=== PATIENT | female | born 1945 | race Caucasian/White ===

== ENCOUNTER 2019-04-05 13:36 | Emergency (ER) | payer OTHER ==
--- NOTE | 2019-04-05 13:47 | PDOC ---
Rapid Medical Evaluation Chief Complaint: Cold Symptoms Time Seen by Provider: 04/05/19 13:44 Medical Evaluation: 04/05/19 13:45 CC: Fever and chills at home. +sore throat and diarrhea PE: VSS. AF. OP- unremarkable. Abd SNTND. Orders: nothing Patient will proceed to ED for continued evaluation. 04/05/19 13:46 Discharge Disposition - Diagnosis Sore throat - Discharge Dispostion Condition at time of disposition: Stable - Referrals - Patient Instructions - Post Discharge Activity
[2019-04-05 13:48] VITALS: BP 142/58; PULSE 79; TEMP 98.5; BMI 22.3
--- NOTE | 2019-04-05 14:02 | PDOC ---
History of Present Illness - General Chief Complaint: Cold Symptoms Stated Complaint: COUGH/FEVER Time Seen by Provider: 04/05/19 13:44 - History of Present Illness Initial Comments: 04/05/19 14:01 CHIEF COMPLAINT: cough HISTORY OF PRESENT ILLNESS: 73 yo F with no PMH presents to [facility] with cough and fever x 1 week. Patient states cough is nonproductive and she had a temp of 101 last night. She has been taking Tylenol at home for the fever but did not take any today "because I wanted you guys to check it." No recent travel or sick contacts. PAST MEDICAL HISTORY: Denies past medical history FAMILY HISTORY: Denies SOCIAL HISTORY:Denies tobacco, alcohol, illicit drug use. SURGICAL HISTORY: Denies ALLERGIES: No known drug allergies REVIEW OF SYSTEMS General/Constitutional: Intermittent fever x 1 week. Denies weakness, weight change. HEENT: Denies change in vision. Denies ear pain or discharge. Denies sore throat. Cardiovascular: Denies chest pain or shortness of breath. Respiratory: Dry cough x 1 week. Denies wheezing, or hemoptysis. Gastrointestinal: Denies nausea, vomiting, diarrhea or constipation. Denies rectal bleeding. Genitourinary: Denies dysuria, frequency, or change in urination. Musculoskeletal: Denies joint or muscle swelling or pain. Denies neck or back pain. Skin and breasts: Denies rash or easy bruising. Neurologic: Denies headache, vertigo, loss of consciousness, or loss of sensation. Psychiatric: Denies depression or anxiety. PHYSICAL EXAM General Appearance: Well-appearing, appropriately dressed. No apparent distress. HEENT: EOMI, PERRLA, normal ENT inspection, normal voice, TMs normal, pharynx normal. No conjunctival pallor. No photophobia, scleral icterus. Neck: Supple. Trachea midline. No tenderness, rigidity, carotid bruit, stridor , lymphadenopathy, or thyromegaly. Respiratory/Chest: Lungs CTAB. No shortness of breath, chest tenderness, respiratory distress, accessory muscle use. No crackles, rales, rhonchi, stridor , wheezing, dullness Cardiovascular: RRR. S1, S2. No JVD, murmur, bradycardia, tachycardia. Vascular Pulses: Dorsalis-Pedis (R): 2+, Dorsalis-Pedis (L): 2+ Gastrointestinal/Abdominal: Normal bowel sounds. Abdomen soft, non-distended. No tenderness or rebound tenderness. No organomegaly, pulsatile mass, guarding , hernia, hepatomegaly, splenomegaly. Lymphatic: No adenopathy, tenderness. Musculoskeletal/Extremities: Normal inspection. FROM of all extremities, normal capillary refill. Pelvis Stable. No CVA tenderness. No tenderness to extremities, pedal edema, swelling, erythema or deformity. Integumentary: Appropriate color, dry, warm. 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 Fully oriented, alert. Appropriate mood/affect. Motor strength 5/5. No appreciable EOM palsy, facial droop or sensory deficit. 04/05/19 14:10 Past History - Past Medical History Allergies/Adverse Reactions: Allergies Allergy/AdvReac Type Severity Reaction Status Date / Time No Known Allergies Allergy Verified 04/05/19 13:48 Home Medications: Ambulatory Orders Azithromycin [Zithromax 250mg Tablets -] 250 mg PO UTDICT #6 tab 04/05/19 Benzonatate [Tessalon Pearls -] 100 mg PO TID #21 capsule 04/05/19 COPD: No - Immunization History Immunization Up to Date: No - Psycho Social/Smoking Cessation Hx Smoking History: Never smoked Have you smoked in the past 12 months: No Information on smoking cessation initiated: No Hx Alcohol Use: No Drug/Substance Use Hx: No *Physical Exam - Vital Signs Last Vital Signs Temp Pulse Resp BP Pulse Ox 98.5 F 79 16 142/58 L 99 04/05/19 13:45 04/05/19 13:45 04/05/19 13:45 04/05/19 13:45 04/05/19 13:45 Medical Decision Making - Medical Decision Making 04/05/19 14:11 73 yo F with no PMH presents to [facility] with cough and fever x 1 week. -cxr Will treat for CAP given persistent symptoms in elderly patient. -azithromycin -leeanne ferro Advised patient to take medication as prescribed and follow up with PCP in one week. Advised patient of signs and symptoms for return to ED. Patient verbalized understanding and agrees to plan. 04/05/19 16:42 Discharge - Discharge Information Problems reviewed: Yes Clinical Impression/Diagnosis: Pneumonia Qualifiers: Pneumonia type: due to unspecified organism Laterality: left Lung location: lower lobe of lung Qualified Code(s): J18.1 - Lobar pneumonia, unspecified organism Condition: Stable Disposition: HOME - Admission No - Additional Discharge Information Prescriptions: Azithromycin [Zithromax 250mg Tablets -] 250 mg PO UTDICT #6 tab Benzonatate [Tessalon Pearls -] 100 mg PO TID #21 capsule - Follow up/Referral Referrals: Lino Fuentes MD [Staff Physician] - - Patient Discharge Instructions Patient Printed Discharge Instructions: DI for Pneumonia -- Adult Additional Instructions: Please take medications as prescribed. Follow up with your primary care doctor in one week. If you develop any chest pain, shortness of breath, persistent fever, vomiting, diarrhea, or any new or worsening symptoms, please return to the ER immediately. - Post Discharge Activity
== END 2019-04-05 14:59 | disposition home or self-care (01) ==
LOC: JERFT 13:36
DX: J18.1 Lobar pneumonia, unspecified organism (principal)
CPT/HCPCS: 71046-TC-FY; 99281-25

== ENCOUNTER 2019-07-23 09:37 | Emergency (ER) | payer OTHER ==
[2019-07-23 09:53] VITALS: BP 121/71; PULSE 78; BMI 22.2
[2019-07-23] MEDS ORDERED: ACETAMINOPHEN 325 MG TABLET (FP) PO ONE (10:32)
[2019-07-23] MEDS ORDERED: MECLIZINE HCL 25 MG TABLET (FP) PO ONE (10:32)
[2019-07-23] MEDS ORDERED: SODIUM CHLORIDE 1,000 ML IV STA (10:32)
--- NOTE | 2019-07-23 10:38 | PDOC ---
Attending Attestation - Resident Resident Name: Carl Martinez - ED Attending Attestation I have performed the following: I have examined & evaluated the patient, The case was reviewed & discussed with the resident, I agree w/resident's findings & plan, Exceptions are as noted - HPI HPI: 07/23/19 10:33 74y F history of intermittent vertigo presents with a complaint of vertigo especially when she is sitting up or turning her head. When she is at rest laying down she is asymptomatic without any dizziness at all. The patient endorsed mild nausea earlier but has since resolved. The patient denies any current fevers or chills, neck pain, neck stiffness chest pain, shortness of breath, palpitations, abdominal pain, blood per rectum, current diarrhea. Patient states that she has had intermittent vertigo since Thursday she took a meclizine on Thursday with resolution of her symptoms. Yesterday patient noticed she had some mild right eye swelling as well as a subjective fevers some watery diarrhea and feeling nauseous, symptoms had since resolved. The patient also endorses a very mild pressure-like headache that she typically feels when she is not feeling at her best. 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 - Physicial Exam PE: 07/23/19 10:53 GENERAL: The patient is awake, alert, and fully oriented, Nontoxic - in no acute distress. HEAD: Normocephalic, atraumatic. EYES: extraocular movements intact, sclera anicteric, conjunctiva clear. No vertigo ENT: Normal voice, dry mucous membranes. NECK: Normal range of motion, supple LUNGS: Breath sounds equal, clear to auscultation bilaterally. No wheezes, no rhonchi, no rales. HEART: Regular rate and rhythm, normal S1 and S2 without murmur, rub or gallop. ABDOMEN: Soft, nontender, No guarding, no rebound. No CVA tenderness EXTREMITIES: Normal range of motion, no edema. NEUROLOGICAL: No facial assymetry, Normal speech, normal rapid alternating movements, normal sensation in upper and lower extremities. PSYCH: Normal mood, normal affect. SKIN: Warm, Dry, normal turgor, - Medical Decision Making 07/23/19 10:54 Suspect vertigo, possibly resolved viral syndrome. No clinical or symptoms suggestive of central vertigo. possible influenza, Normal neurologic exam including no cerebellar findings Will obtain screening blood work to rule out anemia, metabolic derangements. Patient afebrile here. We will give the patient fluids, meclizine for symptomatic relief 07/23/19 12:20 The patient's blood work was reviewed only notable for slightly elevated BUN likely consistent with dehydration. Patient is feeling significantly improved, ambulating without any symptoms Will discharge patient with supportive care, patient has meclizine at home (she had not taken it earlier as she was at work) I discussed the physical exam findings, ancillary test results and final diagnoses with the patient. I answered all of the patient's questions. The patient was satisfied with the care received and felt comfortable with the discharge plan and treatment plan. The patient will call their primary care physician within 24 hours to arrange follow-up and will return to the Emergency Department with any new, persistent or worsening symptoms. Heart Score/ECG Review - ECG Impressions Comment:: 07/23/19 10:55 Twelve-lead EKG was performed and reviewed by me. There is normal sinus rhythm with a normal rate. Rate of [address] wave abnormality
--- NOTE | 2019-07-23 10:50 | PDOC ---
History of Present Illness - General Chief Complaint: Lightheaded Stated Complaint: VERTIGO Time Seen by Provider: 07/23/19 10:22 History Source: Patient Exam Limitations: No Limitations - History of Present Illness Initial Comments: 07/23/19 10:40 74 yo female pmh vertigo presents to the ED for 4 days of headaches, fevers, right ear pain, dizziness, nausea without vomiting. 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 Denies recent travel, CP, SOB, abdominal pain, changes in bowel or bladder habits. Pt states it feels like the room is spinning around her, was unable to continue working today due to the severity. Past History - Past Medical History Allergies/Adverse Reactions: Allergies Allergy/AdvReac Type Severity Reaction Status Date / Time No Known Allergies Allergy Verified 07/23/19 10:21 Home Medications: Ambulatory Orders NK [No Known Home Medication] 07/23/19 COPD: No Other medical history: vertigo - Immunization History Immunization Up to Date: No - Psycho Social/Smoking Cessation Hx Smoking History: Unknown if ever smoked Have you smoked in the past 12 months: No Hx Alcohol Use: No Drug/Substance Use Hx: No Review of Systems - Review of Systems Constitutional: Yes: See HPI HEENTM: Yes: See HPI Respiratory: Yes: See HPI Cardiac (ROS): Yes: See HPI ABD/GI: Yes: See HPI : Yes: See HPI Musculoskeletal: Yes: See HPI Integumentary: Yes: See HPI Neurological: Yes: See HPI *Physical Exam - Vital Signs Last Vital Signs Temp Pulse Resp BP Pulse Ox 97.8 F 78 18 121/71 99 07/23/19 09:50 07/23/19 09:50 07/23/19 09:50 07/23/19 09:50 07/23/19 09:50 - Physical Exam General Appearance: Yes: Nourished, Appropriately Dressed. No: Apparent Distress HEENT: positive: EOMI, KIANA, Normal ENT Inspection, Pharynx Normal, Hearing Grossly Normal. negative: Tonsillar Exudate, Tonsillar Erythema Neck: positive: Supple. negative: Carotid bruit Respiratory/Chest: positive: Lungs Clear, Normal Breath Sounds. negative: Respiratory Distress, Accessory Muscle Use, Crackles, Rales, Rhonchi, Stridor, Wheezing Cardiovascular: positive: Regular Rhythm, Regular Rate, S1, S2. negative: Edema , JVD, Murmur Vascular Pulses: Dorsalis-Pedis (R): 4+, Doralis-Pedis (L): 4+ Gastrointestinal/Abdominal: positive: Flat, Soft. negative: Pulsatile Mass, Protuberent, Distended, Guarding, Rebound, Tenderness Musculoskeletal: negative: CVA Tenderness Extremity: positive: Normal Capillary Refill, Normal Inspection, Normal Range of Motion Integumentary: positive: Normal Color, Dry, Warm Neurologic: positive: stripe marker II-XII NML intact, Fully Oriented, Alert, Normal Mood/ Affect, Normal Response, Motor Strength 5/5. negative: Numbness, Sensory Deficit, Confused, Disoriented ED Treatment Course - LABORATORY CBC & Chemistry Diagram: 07/23/19 10:55 07/23/19 10:55 Medical Decision Making - Medical Decision Making 07/23/19 12:23 74 yo female pmh vertigo presents to the ED for 4 days of headaches, fevers, right ear pain, dizziness, nausea without vomiting. 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 Denies recent travel, CP, SOB, abdominal pain, changes in bowel or bladder habits. Pt states it feels like the room is spinning around her, was unable to continue working today due to the severity. Vitals WNL NAD pt well appearing Given tylenol for GRAYSON, meclizine for dizziness and fluids Labs WNL BUN slightly elevated, likely dehydration Labs otherwise WNL Pt feels much better after medication, ambulates without difficulty no longer dizzy. PT safe for DC home with strict return precautions Discharge - Discharge Information Problems reviewed: Yes Clinical Impression/Diagnosis: Vertigo Condition: Improved Disposition: HOME - Admission No - Follow up/Referral Referrals: Dorothy Davidson MD [Primary Care Provider] - - Patient Discharge Instructions Patient Printed Discharge Instructions: DI for Vertigo, DI for Headache Additional Instructions: Please see your Primary doctor within the next 48 hours. Continue taking your home dosed and prescribed meclizine for dizziness along with Tylenol and Motrin over the counter for headaches and pain. Increase your fluid intake. Return to the ER for new or concerning symptoms. Thank you - Post Discharge Activity
[2019-07-23 10:53] VITALS: TEMP 98.6
[2019-07-23] MEDS ORDERED: MECLIZINE HCL 25 MG TABLET (FP) ONE ×2 (10:54→11:00)
[2019-07-23] MEDS ORDERED: ACETAMINOPHEN 325 MG TABLET (FP) ONE ×2 (10:54→11:00)
[2019-07-23 11:06] LABS: BASO % 0.9 % (0-2.0); EOS % 1.6 % (0-4.5); HEMATOCRIT 38.1 % (32.4-45.2); HEMOGLOBIN 12.5 GM/dL (10.7-15.3); LYMPH % 21.2 % (8-40); MCH 28.3 pg (25.7-33.7); MCHC 32.7 g/dl (32.0-36.0); MEAN CELL VOLUME 86.4 fl (80-96); MEAN PLT VOLUME 7.3 fl (7.5-11.1); MONO % 10.5 % (3.8-10.2); NEUT % 65.8 % (42.8-82.8); PLATELET COUNT 241 K/MM3 (134-434); RBC 4.41 M/mm3 (3.60-5.2); RDW 14.3 % (11.6-15.6); WHITE BLOOD COUNT 4.5 K/mm3 (4.0-10.0)
[2019-07-23 11:27] LABS: ALBUMIN 3.7 g/dl (3.4-5.0); BILIRUBIN,TOTAL 0.2 mg/dL (0.2-1); BLOOD UREA NITROGEN 20.2 mg/dL (7-18); CALCIUM 9.3 mg/dL (8.5-10.1); CREATININE 0.7 mg/dL (0.55-1.3); POTASSIUM 3.8 mmol/L (3.5-5.1); TOT PROT 7.3 g/dl (6.4-8.2)
--- NOTE | 2019-07-23 14:28 | EKG ---
Test Reason : Blood Pressure : / mmHG Vent. Rate : 071 BPM Atrial Rate : 071 BPM P-R Int : 150 ms QRS Dur : 078 ms QT Int : 380 ms P-R-T Axes : 051 025 029 degrees QTc Int : 412 ms NORMAL SINUS RHYTHM WITH SINUS ARRHYTHMIA NONSPECIFIC ST ABNORMALITY ABNORMAL ECG Confirmed by MD MODESTO, ECTOR ([id number]) on 07/23/2019 2:28:37 PM Referred By: Confirmed By:ECTOR SALVADOR MD
== END 2019-07-23 13:03 | disposition home or self-care (01) ==
LOC: JER 09:37
PROC: 3E0337Z Introduction of Electrolytic and Water Balance Substance into Peripheral Vein, Percutaneous Approach (ICD-10-PCS; principal; 2019-07-23)
DX: R42 Dizziness and giddiness (principal); R51 Headache
CPT/HCPCS: 36415; 80053; 85025; 87804; 93005; 93010; 96360; 99283-25; J7030